=== PATIENT | female | born 1965 | race African-American/Black ===

== ENCOUNTER 2020-06-03 16:42 | Inpatient (IN) | payer MEDICAID, OTHER ==
[~2020-06-03] VITALS: Ht 165.1 cm; Wt 66.3 kg
[~2020-06-03 16:42] MED LIST: ALBU8.5H8 IH; ATOR20TA86 PO; BECL8.7A6 IH; DIVA-111 PO; FERR-89 PO; HYDR50CA9 PO; LISI-894 PO; OMEP20 PO; PRAZ2 PO; QUET100T PO; TRET40CR8 TP
[2020-06-03 19:05] LABS: COVID AG,FIA SOURCE NASOPHARYNGEAL
[2020-06-03 20:31] LABS: BASOPHILS % (AUTO) 0.9 % (0.0-2.0); EOSINOPHILS % (AUTO) 2.8 % (1.0-6.0); HEMATOCRIT 34.6 % (36-46); HEMOGLOBIN 10.9 g/dL (12.0-16.0); LYMPHOCYTES # (AUTO) 2.2 K/uL (1.0-4.8); LYMPHOCYTES % (AUTO) 36.4 % (22.0-44.0); MEAN CORPUSCULAR HEMOGLOBIN 26.5 pg (26.0-34.0); MEAN CORPUSCULAR HGB CONC 31.5 G/dL (31.0-37.0); MEAN CORPUSCULAR VOLUME 84 fL (80-100); MONOCYTES # (AUTO) 0.5 K/uL (0.1-1.0); MONOCYTES % (AUTO) 7.5 % (2.0-9.0); NEUTROPHILS # (AUTO) 3.1 K/uL (1.8-7.7); NEUTROPHILS % (AUTO) 52.4 % (40.0-70.0); PLATELET COUNT (AUTO) 260 K/uL (150-450); RED BLOOD CELL COUNT(AUTO) 4.12 MIL/uL (4.00-5.20); RED CELL DISTRIBUTION WIDTH 14.9 % (11.5-14.5)
[2020-06-03 20:41] LABS: ANION GAP 13 mmol/L (8-16); CALCIUM, TOTAL 9.3 mg/dL (8.8-10.5); CARBON DIOXIDE 25 mmol/L (22-29); CHLORIDE 108 mmol/L (98-107); CREATININE 0.82 mg/dL (0.60-1.30); GLOMERULAR FILTR. RATE CALC > 60 mL/min (>60); GLUCOSE,RANDOM 122 mg/dL (70-110); POTASSIUM 3.5 mmol/L (3.5-5.1); SODIUM SERUM 146 mmol/L (136-145); UREA NITROGEN, BLOOD 16 mg/dL (7-18)
[2020-06-03 20:48] LABS: ALANINE AMINOTRANSFERASE 29 U/L (12-78); ALBUMIN 3.9 g/dL (3.4-5.0); ALKALINE PHOSPHATASE 125 U/L (46-116); ASPARTATE AMINOTRANSFERASE 17 U/L (15-37); BILIRUBIN,TOTAL 0.2 mg/dL (0.1-1.0); TOTAL PROTEIN, SERUM 7.3 g/dL (6.4-8.2)
[2020-06-03 20:54] LABS: ACETAMINOPHEN < 2 mcg/mL (10-30); VALPROIC ACID < 3 mcg/mL (50-100)
[2020-06-03] MEDS ORDERED: HALOPERIDOL 5 MG TABLET PO PRN (21:30)
[2020-06-03] MEDS ORDERED: LORazepam 2 MG TABLET PO PRN (21:30)
[2020-06-03] MEDS ORDERED: ZOLPIDEM TARTRATE 10 MG TABLET PO PRN (21:30)
[2020-06-03 21:31] LABS: SALICYLATE 2.6 mg/dL (2.8-20.0)
[2020-06-04] MEDS ORDERED: ALBUTEROL SULFATE HFA 90 MCG/PUFF 8 GM INHALER IH PRN ×2 (07:00→07:30)
[2020-06-04 07:29] LABS: CHOL/HDL RATIO 3.2 (3.9-5.7)
[2020-06-04] MEDS ORDERED: NICOTINE 14 MG/24 HOUR PATCH TD PRN (07:30)
[2020-06-04] MEDS ORDERED: CloNIDine HCL 0.1 MG TABLET PO PRN (07:30)
[2020-06-04] MEDS ORDERED: MAGNESIUM HYDROXIDE SUSPENSION 30 ML UDCUP PO PRN (07:30)
[2020-06-04] MEDS ORDERED: MAG HYDROX/AL HYDROX/SIMETH ES 30 ML SUSPENSION UDCUP PO PRN (07:30)
[2020-06-04] MEDS ORDERED: LOPERAMIDE HCL 2 MG CAPSULE PO PRN (07:30)
[2020-06-04] MEDS ORDERED: GuaiFENesin/D-METHORPHAN [SUGAR-FREE] 200-20MG/10 ML SYRUP UDCUP PO PRN (07:30)
[2020-06-04] MEDS ORDERED: DOCUSATE SODIUM 100 MG CAPSULE PO PRN (07:30)
[2020-06-04] MEDS ORDERED: ACETAMINOPHEN 325 MG TABLET PO PRN (07:30)
[2020-06-04] MEDS ORDERED: PETROLATUM,WHITE 28 GM JELLY TP PRN (07:30)
[2020-06-04] MEDS ORDERED: IBUPROFEN 400 MG TABLET PO PRN (07:30)
[2020-06-04] MEDS ORDERED: ONDANSETRON HCL 4 MG TABLET PO PRN (07:30)
[2020-06-04] MEDS: FERROUS SULFATE 325 MG EC TABLET PO SCH ×4 (08:50→20:32)
[2020-06-04] MEDS: OMEPRAZOLE 20 MG CAPSULE PO SCH ×2 (08:59→17:03)
[2020-06-04] MEDS: PRAZOSIN HCL 2 MG CAPSULE PO SCH ×2 (08:59→17:00)
[2020-06-04] MEDS: LISINOPRIL 20 MG TABLET PO SCH (09:00)
[2020-06-04 09:03] VITALS: BP 116/77
[2020-06-04] MEDS ORDERED: DIVA-112 PO (11:05)
[2020-06-04] MEDS ORDERED: DiphenhydrAMINE HCL 50 MG/ML VIAL ONE (16:30)
[2020-06-04] MEDS ORDERED: HALOPERIDOL LACTATE 5 MG/ML VIAL ONE (16:30)
[2020-06-04] MEDS ORDERED: LORazepam 2 MG/ML VIAL ONE (16:30)
[2020-06-04] MEDS: BECLOMETHASONE DIPR HFA 80 MCG/PUFF 10.6 GM INHALER IH SCH (17:00)
[2020-06-04] MEDS: HydrOXYzine PAMOATE 50 MG CAPSULE PO SCH (17:03)
[2020-06-04] MEDS: QUEtiapine FUMARATE 100 MG TABLET PO SCH (20:32)
[2020-06-04] MEDS: DIVALPROEX SODIUM 500 MG DR TABLET PO SCH (20:32)
[2020-06-04] MEDS: ATORVASTATIN CALCIUM 20 MG TABLET PO SCH (20:32)
[2020-06-05] MEDS: FERROUS SULFATE 325 MG EC TABLET PO SCH ×4 (06:51→20:01)
[2020-06-05 08:06] VITALS: BP 125/95
[2020-06-05] MEDS: LISINOPRIL 20 MG TABLET PO SCH (08:12)
[2020-06-05] MEDS: HydrOXYzine PAMOATE 50 MG CAPSULE PO SCH ×3 (08:12→16:20)
[2020-06-05] MEDS: OMEPRAZOLE 20 MG CAPSULE PO SCH ×2 (08:12→16:19)
[2020-06-05] MEDS: BECLOMETHASONE DIPR HFA 80 MCG/PUFF 10.6 GM INHALER IH SCH ×2 (08:16→16:28)
[2020-06-05] MEDS: PRAZOSIN HCL 2 MG CAPSULE PO SCH ×2 (08:16→16:37)
[2020-06-05 16:00] VITALS: BP 107/71
[2020-06-05] MEDS: DIVALPROEX SODIUM 500 MG DR TABLET PO SCH (20:01)
[2020-06-05] MEDS: QUEtiapine FUMARATE 100 MG TABLET PO SCH (20:01)
[2020-06-05] MEDS: ATORVASTATIN CALCIUM 20 MG TABLET PO SCH (20:01)
[2020-06-06] MEDS: FERROUS SULFATE 325 MG EC TABLET PO SCH ×2 (06:45→13:58)
[2020-06-06 08:21] VITALS: BP 128/81
[2020-06-06] MEDS: PRAZOSIN HCL 2 MG CAPSULE PO SCH ×2 (09:00→09:46)
[2020-06-06] MEDS: BECLOMETHASONE DIPR HFA 80 MCG/PUFF 10.6 GM INHALER IH SCH (09:38)
[2020-06-06] MEDS: LISINOPRIL 20 MG TABLET PO SCH (09:41)
[2020-06-06] MEDS: HydrOXYzine PAMOATE 50 MG CAPSULE PO SCH ×2 (09:41→13:58)
[2020-06-06] MEDS: OMEPRAZOLE 20 MG CAPSULE PO SCH (09:41)
== END 2020-06-06 15:30 | disposition home or self-care (01) | DRG 750 ==
LOC: EMS 16:42 → 3EC 21:23 → 3EI 21:24 → 3EC 06-04 16:35
PROVIDERS: ADMIT Psychiatry & Neurology Child & Adolescent Psychiatry; ATTEND Psychiatry & Neurology Child & Adolescent Psychiatry
DX: F25.0 Schizoaffective disorder, bipolar type (principal); D64.9 Anemia, unspecified; E11.9 Type 2 diabetes mellitus without complications; E78.00 Pure hypercholesterolemia, unspecified; E78.5 Hyperlipidemia, unspecified; E87.1 Hypo-osmolality and hyponatremia; I10 Essential (primary) hypertension; K21.9 Gastro-esophageal reflux disease without esophagitis; R45.851 Suicidal ideations; R51.9 Headache, unspecified; Z20.822 Contact with and (suspected) exposure to COVID-19; Z79.899 Other long term (current) drug therapy; Z98.51 Tubal ligation status
CPT/HCPCS: 87426; 99285; G0480; G0481; J1200; J1630; J2060; J3535